=== PATIENT | male | born 1950 | race Caucasian/White ===

== ENCOUNTER 2019-06-20 17:16 | Inpatient (IN) ==
[2019-06-20] MEDS ORDERED: cefTRIAXone 1,000 MG in SYRINGE 1 EACH IV SCH (20:30)
[2019-06-20] MEDS ORDERED: ALBUTEROL 2.5 MG/3 ML NEB RESP TX PRN (20:40)
[2019-06-20] MEDS ORDERED: GLUCAGON 1 MG VIAL IM PRN (20:40)
[2019-06-20] MEDS ORDERED: DOCUSATE SODIUM 100 MG CAPSULE PO PRN (20:40)
[2019-06-20] MEDS ORDERED: ACETAMINOPHEN 325 MG TABLET PO PRN (20:40)
[2019-06-20] MEDS ORDERED: DEXTROSE 10% 250 ML BAG IV PRN (20:40)
[2019-06-20] MEDS ORDERED: ONDANSETRON 4 MG/2 ML VIAL IV PRN (20:40)
[2019-06-20] MEDS ORDERED: ENOXAPARIN 40 MG/0.4 ML SYRINGE SUBCUT SCH (21:00)
[2019-06-20 21:02] LABS: ABG Base Excess -0.8 MMOL/L (-2.5-2.5); ABG HCO3 23.6 MMOL/L (20-26); ABG Oxygen Saturation 92.4 % (95-100); ABG PCO2 38.2 MM HG (35-48); ABG PH 7.408 (7.35-7.45); ABG PO2 61.7 MM HG (80-95); ABG TCO2 24.7 MMOL/L (23-27); Allen Test Positive
[2019-06-20 21:15] LABS: Basophils # 0.2 10*3/uL (0.0-0.2); Basophils % 0.5 % (0.0-0.8); Eosinophils # 0.1 10*3/uL (0.0-0.87); Eosinophils % 0.3 % (0.00-10.9); Hematocrit 47.9 VOL% (42.0-52.0); Hemoglobin 15.4 GM/DL (14.0-18.0); Immature Granulocytes % 4.2 %; Immature Granulocytes Absolute 1.73 #; Lymphocytes # 0.9 10*3/uL (1.4-4.0); Lymphocytes % 2.2 % (21.2-54.2); Mean Corpuscular HGB Conc 32.2 GM/DL (32-36); Mean Platelet Volume 9.9 FL (9.6-12.0); Monocytes % 2.6 % (1.7-12.7); Neutrophils % 90.2 % (38.7-73.9); Platelet Count 507 T/CUMM (130-400); Red Blood Count 5.04 MC/CUMM (3.8-5.5); Red Cell Distribution Width 17.5 % (9.3-17.3)
[2019-06-20 21:17] LABS: White Blood Count 41.2 T/CUMM (4-12)
[2019-06-20 21:32] LABS: PT Patient Result 53.1 SECS (9.6-12.2)
[2019-06-20 21:34] LABS: Alanine Aminotransferase 18 U/L (16-61); Albumin 3.5 G/DL (3.4-5.0); Alkaline Phosphatase 93 U/L (45-117); Aspartate Amino Transferase 9 U/L (0-37); Blood Urea Nitrogen 23 MG/DL (7-18); Calcium 8.5 MG/DL (8.5-10.1); Estimated Glom Filtration Rate 59 ML/MIN; Glucose 191 MG/DL (74-106); Osmolality,Calculated 283.7 MOS/KG (273-304); Total Protein 6.9 G/DL (6.4-8.3); Troponin I < 0.015 NG/ML (0.00-0.045)
[2019-06-20 21:56] LABS: Lymphocytes 2 % (20-55); Segmented Neutrophils 94 % (50-85); Total Cells Counted 100
[2019-06-20 21:57] LABS: Platelet Estimate Increased
[2019-06-20 21:59] LABS: Polychromasia Slight; Stomatocytes Few
[2019-06-20 22:00] LABS: Anisocytosis 1+; Microcytosis Slight
[2019-06-20] MEDS: AZITHROMYCIN INJ 500 MG in SODIUM CHLORIDE 0.9% 250 ML IV SCH (22:25)
[2019-06-20 22:28] LABS: Apearance,Urine CLEAR (Clear); Bilirubin,Urine Negative (Negative); Blood, Urine Negative (Negative); Glucose,Urine (UA) >=500 mg/dL (Negative); Ketones,Urine 5 mg/dL (Negative); Mucus,Urine Occasional /LPF (Occasional); Nitrite,Urine Negative (Negative); Protein,Urine Negative; Urine Color Yellow (Yellow); Urine Specific Gravity 1.025 (1.001-1.035); Urine Urobilinogen < 2.0 EU/DL (0.2-1.0); WBC,Urine 1 /HPF (0-6)
[2019-06-20] MEDS: INSULIN LISPRO 100 UNIT/ML SUBCUT SCH (22:30)
[2019-06-20] MEDS: methylPREDNISolone SOD SUC 40 MG/1 ML VIAL IV SCH (22:35)
[2019-06-21] MEDS: SODIUM CHLORIDE 0.9% 1,000 ML IV SCH ×2 (00:54→12:26)
[2019-06-21] MEDS: ALBUTEROL/IPRATROPIUM 3 ML NEB RESP TX SCH ×4 (01:22→19:30)
[2019-06-21 02:15] LABS: Basophils # 0.1 10*3/uL (0.0-0.2); Basophils % 0.4 % (0.0-0.8); Eosinophils % 0.1 % (0.00-10.9); Hematocrit 46.3 VOL% (42.0-52.0); Hemoglobin 14.9 GM/DL (14.0-18.0); Immature Granulocytes % 2.4 %; Immature Granulocytes Absolute 0.86 #; Lymphocytes # 0.9 10*3/uL (1.4-4.0); Lymphocytes % 2.5 % (21.2-54.2); Mean Corpuscular HGB Conc 32.2 GM/DL (32-36); Mean Corpuscular Volume 94.5 FL (87-102); Mean Platelet Volume 9.9 FL (9.6-12.0); Monocytes % 1.9 % (1.7-12.7); Neutrophils % 92.7 % (38.7-73.9); Platelet Count 514 T/CUMM (130-400); Red Cell Distribution Width 17.7 % (9.3-17.3); White Blood Count 36.3 T/CUMM (4-12)
[2019-06-21 02:36] LABS: Calcium 8.5 MG/DL (8.5-10.1); Osmolality,Calculated 287.5 MOS/KG (273-304); Thyroid Stimulating Hormone 0.34 uIU/ml (0.358-3.74)
[2019-06-21 02:53] LABS: Band Neutrophils 1 % (0-10); Lymphocytes 5 % (20-55); Segmented Neutrophils 94 % (50-85); Total Cells Counted 100
[2019-06-21 02:54] LABS: Platelet Estimate Increased
[2019-06-21 02:55] LABS: Stomatocytes 1+; Target Cells Few
[2019-06-21 02:56] LABS: Anisocytosis 1+; Microcytosis Slight; Polychromasia Slight
[2019-06-21] MEDS: INSULIN LISPRO 100 UNIT/ML SUBCUT SCH ×4 (08:04→21:54)
[2019-06-21] MEDS: methylPREDNISolone SOD SUC 40 MG/1 ML VIAL IV SCH ×2 (08:29→21:55)
[2019-06-21] MEDS ORDERED: ERGOCALCIFEROL 50,000 UNIT CAPSULE PO SCH (12:04)
[2019-06-21 12:53] LABS: PT Patient Result 10.6 SECS (9.6-12.2)
[2019-06-21] MEDS: METOPROLOL SUCCINATE XL 50 MG TABLET PO SCH (13:18)
[2019-06-21] MEDS: THEOPHYLLINE ER (24 HR) 400 MG CAPSULE PO SCH (13:18)
[2019-06-21] MEDS: PANTOPRAZOLE 40 MG TABLET PO SCH (13:18)
[2019-06-21] MEDS: DULoxetine 30 MG CAPSULE PO SCH (13:18)
[2019-06-21] MEDS: SIMVASTATIN 10 MG TABLET PO SCH (13:19)
[2019-06-21] MEDS: HYDROXYUREA 500 MG CAPSULE PO SCH (13:19)
[2019-06-21] MEDS: CEFEPIME 1,000 MG in SODIUM CHLORIDE 0.9% 100 ML IV SCH ×2 (13:20→18:10)
[2019-06-21] MEDS: AZITHROMYCIN INJ 500 MG in SODIUM CHLORIDE 0.9% 250 ML IV SCH (21:59)
[2019-06-22] MEDS: ALBUTEROL/IPRATROPIUM 3 ML NEB RESP TX SCH ×4 (00:36→19:15)
[2019-06-22] MEDS: CEFEPIME 1,000 MG in SODIUM CHLORIDE 0.9% 100 ML IV SCH ×4 (02:07→18:31)
[2019-06-22 03:41] LABS: Basophils # 0.1 10*3/uL (0.0-0.2); Basophils % 0.2 % (0.0-0.8); Eosinophils % 0.1 % (0.00-10.9); Hematocrit 45.3 VOL% (42.0-52.0); Hemoglobin 14.5 GM/DL (14.0-18.0); Immature Granulocytes % 2.6 %; Immature Granulocytes Absolute 0.87 #; Lymphocytes # 0.7 10*3/uL (1.4-4.0); Lymphocytes % 2.2 % (21.2-54.2); Mean Platelet Volume 9.9 FL (9.6-12.0); Monocytes % 2.4 % (1.7-12.7); Neutrophils % 92.5 % (38.7-73.9); Platelet Count 563 T/CUMM (130-400); Red Blood Count 4.77 MC/CUMM (3.8-5.5); Red Cell Distribution Width 17.8 % (9.3-17.3)
[2019-06-22 04:10] LABS: Albumin 3.1 G/DL (3.4-5.0); Bilirubin,Total 0.4 MG/DL (0.2-1.0); Calcium 8.6 MG/DL (8.5-10.1); Osmolality,Calculated 280.8 MOS/KG (273-304); Total Protein 6.5 G/DL (6.4-8.3)
[2019-06-22 04:27] LABS: Lymphocytes 1 % (20-55); Segmented Neutrophils 95 % (50-85); Total Cells Counted 100
[2019-06-22 04:28] LABS: Anisocytosis 1+; Ovalocytes 1+; Platelet Estimate Increased
[2019-06-22 04:48] LABS: PT Patient Result 10.6 SECS (9.6-12.2); Partial Thromboplastin Time 31.4 SECS (20.8-36.0)
[2019-06-22] MEDS: HYDROXYUREA 500 MG CAPSULE PO SCH (08:12)
[2019-06-22] MEDS: DULoxetine 30 MG CAPSULE PO SCH (08:12)
[2019-06-22] MEDS: METOPROLOL SUCCINATE XL 50 MG TABLET PO SCH (08:12)
[2019-06-22] MEDS: PANTOPRAZOLE 40 MG TABLET PO SCH (08:13)
[2019-06-22] MEDS: THEOPHYLLINE ER (24 HR) 400 MG CAPSULE PO SCH (08:13)
[2019-06-22] MEDS: SIMVASTATIN 10 MG TABLET PO SCH (08:13)
[2019-06-22] MEDS: allopurinoL 300 MG TABLET PO SCH (08:13)
[2019-06-22] MEDS ORDERED: HYDROXYUREA 500 MG CAPSULE PO SCH (09:00)
[2019-06-22] MEDS: INSULIN LISPRO 100 UNIT/ML SUBCUT SCH ×4 (09:07→22:22)
[2019-06-22] MEDS: methylPREDNISolone SOD SUC 40 MG/1 ML VIAL IV SCH ×2 (09:59→20:43)
[2019-06-22] MEDS: AZITHROMYCIN INJ 500 MG in SODIUM CHLORIDE 0.9% 250 ML IV SCH (20:42)
[2019-06-23] MEDS: ALBUTEROL/IPRATROPIUM 3 ML NEB RESP TX SCH ×4 (00:21→19:44)
[2019-06-23] MEDS: CEFEPIME 1,000 MG in SODIUM CHLORIDE 0.9% 100 ML IV SCH ×2 (01:34→06:00)
[2019-06-23] MEDS: methylPREDNISolone SOD SUC 40 MG/1 ML VIAL IV SCH (08:44)
[2019-06-23] MEDS: INSULIN LISPRO 100 UNIT/ML SUBCUT SCH ×4 (08:44→20:44)
[2019-06-23] MEDS: HYDROXYUREA 500 MG CAPSULE PO SCH (08:45)
[2019-06-23] MEDS: THEOPHYLLINE ER (24 HR) 400 MG CAPSULE PO SCH (08:45)
[2019-06-23] MEDS: SIMVASTATIN 10 MG TABLET PO SCH (08:45)
[2019-06-23] MEDS: PANTOPRAZOLE 40 MG TABLET PO SCH (08:46)
[2019-06-23] MEDS: allopurinoL 300 MG TABLET PO SCH (08:46)
[2019-06-23] MEDS: DULoxetine 30 MG CAPSULE PO SCH (08:46)
[2019-06-23] MEDS: METOPROLOL SUCCINATE XL 50 MG TABLET PO SCH (08:47)
[2019-06-24] MEDS: ALBUTEROL/IPRATROPIUM 3 ML NEB RESP TX SCH ×2 (01:04→08:10)
[2019-06-24 08:02] VITALS: BP 158/84
[2019-06-24] MEDS: INSULIN LISPRO 100 UNIT/ML SUBCUT SCH (08:04)
[2019-06-24 08:44] LABS: Basophils % 0.2 % (0.0-0.8); Eosinophils # 0.2 10*3/uL (0.0-0.87); Eosinophils % 1.3 % (0.00-10.9); Hematocrit 50.5 VOL% (42.0-52.0); Hemoglobin 16.3 GM/DL (14.0-18.0); Immature Granulocytes % 2.6 %; Immature Granulocytes Absolute 0.45 #; Lymphocytes # 1.6 10*3/uL (1.4-4.0); Lymphocytes % 8.9 % (21.2-54.2); Mean Corpuscular HGB Conc 32.3 GM/DL (32-36); Mean Corpuscular Volume 94.2 FL (87-102); Mean Platelet Volume 9.7 FL (9.6-12.0); Monocytes % 5.1 % (1.7-12.7); Neutrophils % 81.9 % (38.7-73.9); Platelet Count 578 T/CUMM (130-400); Red Blood Count 5.36 MC/CUMM (3.8-5.5); Red Cell Distribution Width 17.4 % (9.3-17.3); White Blood Count 17.5 T/CUMM (4-12)
[2019-06-24] MEDS ORDERED: predniSONE 20 MG TABLET PO SCH (09:00)
[2019-06-24] MEDS ORDERED: LEVOFLOXACIN 750 MG TABLET PO SCH (09:00)
[2019-06-24] MEDS: DULoxetine 30 MG CAPSULE PO SCH (09:28)
[2019-06-24] MEDS: PANTOPRAZOLE 40 MG TABLET PO SCH (09:28)
[2019-06-24] MEDS: allopurinoL 300 MG TABLET PO SCH (09:28)
[2019-06-24] MEDS: METOPROLOL SUCCINATE XL 50 MG TABLET PO SCH (09:29)
[2019-06-24] MEDS: THEOPHYLLINE ER (24 HR) 400 MG CAPSULE PO SCH (09:29)
[2019-06-24] MEDS: SIMVASTATIN 10 MG TABLET PO SCH (09:29)
[2019-06-24] MEDS: HYDROXYUREA 500 MG CAPSULE PO SCH (09:29)
== END 2019-06-24 11:20 | disposition home or self-care (01) | DRG 871 ==
LOC: N.ICU 17:27 → SUATTDRO 17:27 → SUPCPDRO 17:27 → N.2E 06-21 12:04
PROVIDERS: ADMIT Internal Medicine; ATTEND Internal Medicine